=== PATIENT | female | born 1935 | race Caucasian/White ===

== ENCOUNTER 2016-05-02 21:17 | Inpatient (IN) | payer MEDICARE, OTHER ==
[~2016-05-02] VITALS: Ht 152.4 cm; Wt 64.0 kg
[2016-05-03] VITALS (7 sets, daily range): BP systolic 107–144; RESP 16–18; TEMP 97.3–98.8; Ht 152.4 cm; Wt 64.0 kg
[2016-05-03] MEDS ORDERED: SODIUM CHLORIDE 0.9% 100 ML IV ONE (01:41)
[2016-05-03] MEDS ORDERED: CEFTRIAXONE 1 GM VIAL ONE (01:41)
[2016-05-03] MEDS ORDERED: SODIUM CHLORIDE 0.9% 1,000 ML ONE (01:41)
[2016-05-03] MEDS ORDERED: SALINE FLUSH 10 ML FLUSH PRN (03:50)
[2016-05-03] MEDS ORDERED: MAG HYDROX 30 ML UDC PO PRN (03:50)
[2016-05-03] MEDS ORDERED: ALU/MAG/SIM 30 ML UDC PO PRN (03:50)
[2016-05-03] MEDS ORDERED: BISACODYL 10 MG SUPP RECTAL PRN (03:50)
[2016-05-03] MEDS ORDERED: BISACODYL EC 5 MG TAB PO PRN (03:50)
[2016-05-03] MEDS ORDERED: ONDANSETRON 4 MG VIAL IV PUSH PRN (04:05)
[2016-05-03] MEDS: SODIUM CHLORIDE 0.9% 1,000 ML IV SCH ×2 (05:25→18:09)
[2016-05-03] MEDS: SODIUM CHLORIDE 0.9% FLUSH BAG 500 ML IV SCH (05:35)
[2016-05-03] MEDS: SALINE FLUSH 10 ML FLUSH SCH ×2 (08:00→20:00)
[2016-05-03] MEDS: GUAIFENESIN ER 600 MG TABCR PO SCH ×2 (08:46→20:54)
[2016-05-03] MEDS: ENOXAPARIN 30 MG/0.3 ML SYR SUBQ SCH (08:47)
[2016-05-03] MEDS: FAMOTIDINE 20 MG INJ IV SCH ×2 (08:47→20:54)
[2016-05-03] MEDS: ATENOLOL 25 MG TAB PO SCH ×2 (12:04→20:54)
[2016-05-03] MEDS ORDERED: HALOPERIDOL 2 MG TAB PO ONE (20:25)
[2016-05-03] MEDS: HCTZ 12.5 MG CAP PO SCH (20:54)
[2016-05-03] MEDS: KCL CR 10 MEQ TAB PO SCH (20:54)
[2016-05-03] MEDS: amLODIPine 2.5 MG TAB PO SCH (20:54)
[2016-05-03] MEDS: Atorvastatin 40 MG TAB PO SCH (20:54)
[2016-05-03] MEDS: ACETAMINOPHEN 325 MG TAB PO PRN (21:42)
[2016-05-04] VITALS (7 sets, daily range): BP systolic 116–151; RESP 16–18; TEMP 97.5–98.4
[2016-05-04] MEDS: SODIUM CHLORIDE 0.9% 1,000 ML IV SCH ×2 (02:18→21:12)
[2016-05-04] MEDS: SODIUM CHLORIDE 0.9% FLUSH BAG 500 ML IV SCH (05:02)
[2016-05-04] MEDS: LEVOTHYROXINE 0.05 MG TAB PO SCH (05:35)
[2016-05-04] MEDS: SALINE FLUSH 10 ML FLUSH SCH ×2 (09:04→20:00)
[2016-05-04] MEDS: CEFTRIAXONE 1 GM in SODIUM CHLORIDE 0.9% 50 ML IV SCH (09:05)
[2016-05-04] MEDS: FAMOTIDINE 20 MG INJ IV SCH (09:05)
[2016-05-04] MEDS: amLODIPine 2.5 MG TAB PO SCH ×2 (09:06→21:13)
[2016-05-04] MEDS: ATENOLOL 25 MG TAB PO SCH ×2 (09:06→21:13)
[2016-05-04] MEDS: GUAIFENESIN ER 600 MG TABCR PO SCH ×2 (09:06→21:13)
[2016-05-04] MEDS: KCL CR 10 MEQ TAB PO SCH ×2 (09:06→21:13)
[2016-05-04] MEDS: HCTZ 12.5 MG CAP PO SCH ×2 (09:06→21:13)
[2016-05-04] MEDS: ENOXAPARIN 30 MG/0.3 ML SYR SUBQ SCH (09:07)
[2016-05-04] MEDS: ACETAMINOPHEN 325 MG TAB PO PRN ×2 (10:43→19:01)
[2016-05-04] MEDS ORDERED: QUEtiapine 25 MG TAB PO PRN (21:00)
[2016-05-04] MEDS: Atorvastatin 40 MG TAB PO SCH (21:13)
[2016-05-05 03:48] VITALS: BP_SYST 116; RESP 16; TEMP 98.1
[2016-05-05] MEDS: SODIUM CHLORIDE 0.9% FLUSH BAG 500 ML IV SCH (06:00)
[2016-05-05] MEDS: LEVOTHYROXINE 0.05 MG TAB PO SCH (06:45)
[2016-05-05] MEDS: SODIUM CHLORIDE 0.9% 1,000 ML IV SCH (06:45)
[2016-05-05 07:00] VITALS: BP_SYST 138; RESP 16; TEMP 98.5
[2016-05-05] MEDS: GUAIFENESIN ER 600 MG TABCR PO SCH (09:22)
[2016-05-05] MEDS: ATENOLOL 25 MG TAB PO SCH (09:22)
[2016-05-05] MEDS: SALINE FLUSH 10 ML FLUSH SCH (09:22)
[2016-05-05] MEDS: HCTZ 12.5 MG CAP PO SCH (09:22)
[2016-05-05] MEDS: CEFTRIAXONE 1 GM in SODIUM CHLORIDE 0.9% 50 ML IV SCH (09:22)
[2016-05-05] MEDS: KCL CR 10 MEQ TAB PO SCH (09:22)
[2016-05-05] MEDS: amLODIPine 2.5 MG TAB PO SCH (09:22)
[2016-05-05] MEDS: ENOXAPARIN 30 MG/0.3 ML SYR SUBQ SCH (09:23)
[2016-05-05 11:26] VITALS: BP_SYST 128; RESP 16; TEMP 98.2
[2016-05-05 14:30] VITALS: BP_SYST 128; RESP 16; TEMP 98.2
== END 2016-05-05 15:16 | disposition home health service (06) | DRG 689 ==
LOC: ENRESERVTM → ENRESERV → ENRESERVDT → ER 21:17 → ENPENDDIS 05-03 03:48 → EMR 05-03 03:48 → PCU2 05-03 05:09 → PCU 05-03 05:13 → 2NO 05-04 20:27
PROVIDERS: ADMIT Internal Medicine; ATTEND Internal Medicine
DX: N39.0 Urinary tract infection, site not specified (principal); G93.41 Metabolic encephalopathy; N17.9 Acute kidney failure, unspecified; E87.1 Hypo-osmolality and hyponatremia; R11.2 Nausea with vomiting, unspecified; N81.4 Uterovaginal prolapse, unspecified; I44.1 Atrioventricular block, second degree; E78.5 Hyperlipidemia, unspecified; I10 Essential (primary) hypertension; F03.90 Unspecified dementia, unspecified severity, without behavioral disturbance, psychotic disturbance, mood disturbance, and anxiety; M19.90 Unspecified osteoarthritis, unspecified site; Z85.038 Personal history of other malignant neoplasm of large intestine; Z90.49 Acquired absence of other specified parts of digestive tract; E89.0 Postprocedural hypothyroidism; Z87.891 Personal history of nicotine dependence
CPT/HCPCS: 36415; 74022; 74176; 80048; 80053; 81001; 82553; 83605; 83690; 83735; 83930; 84100; 84145; 84484; 85025; 87040; 87088; 87186; 93005; 94799; 96365; 99223; 99233; 99239